=== PATIENT | male | born 1980 ===

== ENCOUNTER 2017-09-23 13:02 | Outpatient (CLI) | payer OTHER | END 2017-09-23 13:03 | disposition home or self-care (01) | LOC: SC 13:02 | PROVIDERS: ATTEND Internal Medicine Pulmonary Disease | DX: G47.30 Sleep apnea, unspecified (principal); G47.10 Hypersomnia, unspecified; R06.83 Snoring | CPT/HCPCS: 99203; 99212 ==

== ENCOUNTER 2017-10-30 14:11 | Outpatient (CLI) | payer OTHER | END 2017-10-30 14:12 | disposition home or self-care (01) | LOC: SC 14:11 | PROVIDERS: ATTEND Nurse Practitioner Family | DX: G47.30 Sleep apnea, unspecified (principal); G47.10 Hypersomnia, unspecified; R06.83 Snoring; G47.8 Other sleep disorders | CPT/HCPCS: 99212; 99214 ==